=== PATIENT | male | born 1980 | race Caucasian/White ===

== ENCOUNTER → 2019-09-01 | Outpatient (CLI) | payer OTHER | LOC: MHCPAIN 07:49 | DX: G89.29 Other chronic pain (principal); M47.812 Spondylosis without myelopathy or radiculopathy, cervical region; R51 Headache | CPT/HCPCS: G0463 ==

== ENCOUNTER → 2019-09-08 | Outpatient (CLI) | payer OTHER | LOC: MHCPAIN 09:03 | DX: M79.18 Myalgia, other site (principal) | CPT/HCPCS: J1040 ==